=== PATIENT | female | born 1980 | race Asian ===

== ENCOUNTER 2017-08-17 04:30 | Inpatient (IN) | payer SELFPAY ==
[~2017-08-17] VITALS: Ht 168 cm; Wt 74.0 kg
[2017-08-17] MEDS ORDERED: OXYTOCIN 10 UNITS/ML VIAL ONE ×2 (04:55→04:56)
[2017-08-17] MEDS ORDERED: LIDOCAINE MPF 1% - **ER/OR** 10 ML ONE (05:20)
[2017-08-17] MEDS ORDERED: PREN1SGL25 PO (05:37)
[2017-08-17] MEDS ORDERED: FERR-252 PO (05:38)
[2017-08-17] MEDS ORDERED: METHYLERGONOVINE 0.2 MG TAB PO PRN (05:40)
[2017-08-17] MEDS ORDERED: SODIUM PHOSPHATE 118 ML ENEM RC PRN (05:40)
[2017-08-17] MEDS ORDERED: BENZOCAINE/MENTHOL 20%-0.5% 60 GM CAN TP PRN (05:40)
[2017-08-17] MEDS ORDERED: HYDROcodone/APAP 5/325 MG 1 TAB TAB PO PRN (05:40)
[2017-08-17] MEDS ORDERED: METHYLERGONOVINE 0.2 MG/ML AMP IM PRN (05:40)
[2017-08-17] MEDS ORDERED: OXYTOCIN 10 UNITS/ML VIAL IM PRN (05:40)
[2017-08-17] MEDS ORDERED: oxyCODONE/APAP 5/325 MG 1 TAB TAB PO PRN (05:40)
[2017-08-17] MEDS ORDERED: TEMAZEPAM 15 MG CAP PO PRN (05:40)
[2017-08-17] MEDS ORDERED: MEASLES, MUMPS, AND RUBELLA 1 VIAL SQVAC PRN (05:40)
[2017-08-17] MEDS ORDERED: OXYTOCIN 10 UNITS/ML VIAL IM SCH (05:45)
[2017-08-17 06:06] LABS: BASOPHILS # (AUTO) 0.1 K/uL (0.00-0.22); BASOPHILS % (AUTO) 0.4 % (0.0-2.0); EOSINOPHILS % (AUTO) 0.2 % (0.0-4.0); HEMATOCRIT 39.2 % (36-48); LYMPHOCYTES # (AUTO) 1.4 K/uL (2.5-16.5); LYMPHOCYTES % (AUTO) 8.3 % (20.5-51.1); MEAN CORPUSCULAR HEMOGLOBIN 31 pg (27-31); MEAN CORPUSCULAR HGB CONC 33 g/dL (33-37); MEAN CORPUSCULAR VOLUME 91.8 fL (80-94); MONOCYTES # (AUTO) 0.8 K/uL (0.8-1.0); MONOCYTES % (AUTO) 4.9 % (1.7-9.3); NEUTROPHILS # (AUTO) 14.6 K/uL (1.8-7.7); NEUTROPHILS % (AUTO) 86.2 % (42.2-75.2); PLATELET COUNT (AUTO) 128 K/uL (140-450); RED BLOOD CELL COUNT(AUTO) 4.27 MIL/uL (4.20-5.40); RED CELL DISTRIBUTION WIDTH 13.7 % (11.6-13.7)
[2017-08-17 06:32] LABS: ALBUMIN 2.5 g/dL (3.4-5.0); ANION GAP 17.2 (8-16); CARBON DIOXIDE 20.7 mmol/L (21-32); CREATININE 0.7 mg/dL (0.6-1.3); POTASSIUM 3.9 mmol/L (3.5-5.1); TOTAL BILIRUBIN 0.4 mg/dL (0.0-1.0)
[2017-08-17 07:32] VITALS: BP 122/80
--- NOTE | 2017-08-17 10:00 | NUR ---
PATIENT HAS BEEN SCREENED AND CATEGORIZED LOW NUTRITION RISK. PATIENT WILL BE SEEN WITHIN 7 DAYS OF ADMISSION. 08/23/[address]
[2017-08-17] MEDS ORDERED: DOCUSATE SOD/SENNA 50/8.6 MG 1 TAB PO SCH (21:00)
[2017-08-18 06:27] LABS: HEMATOCRIT 31.1 % (36-48); HEMOGLOBIN 10.5 g/dL (12.0-16.0)
[2017-08-18] MEDS ORDERED: DOCUSATE SOD/SENNA 50/8.6 MG 1 TAB PO SCH (21:00)
== END 2017-08-18 17:35 | disposition home or self-care (01) | DRG 775 ==
LOC: MLD 04:30 → MFCC 09:01
PROVIDERS: ADMIT Obstetrics & Gynecology; ATTEND Obstetrics & Gynecology
PROC: 10E0XZZ Delivery of Products of Conception, External Approach (ICD-10-PCS; principal; 2017-08-17)
PROC: 0KQM0ZZ Repair Perineum Muscle, Open Approach (ICD-10-PCS; 2017-08-17)
PROC: 3E0234Z Introduction of Serum, Toxoid and Vaccine into Muscle, Percutaneous Approach (ICD-10-PCS; 2017-08-17)
DX: O70.1 Second degree perineal laceration during delivery (principal); Z37.0 Single live birth; Z23 Encounter for immunization; Z3A.38 38 weeks gestation of pregnancy; Z82.49 Family history of ischemic heart disease and other diseases of the circulatory system
CPT/HCPCS: 36415; 59409; 80053; 85018; 85025; 86592; 86762; 86886; 86900; 86901; 87340; 90715; J2001; J2590; J7120